=== PATIENT | male | born 1960 | race African-American/Black ===

== ENCOUNTER 2016-11-14 15:52 | Emergency (ER) | payer OTHER, BC ==
[~2016-11-14] VITALS: Ht 185.4 cm; Wt 81.5 kg
[~2016-11-14 15:52] MED LIST: CIPRO500 MG PO; VIAGRA50 MG PO
[2016-11-14 17:23] VITALS: BP 130/72
== END 2016-11-14 17:24 | disposition home or self-care (01) ==
LOC: EME 15:52
DX: T22.111A Burn of first degree of right forearm, initial encounter (principal); X13.1XXA Other contact with steam and other hot vapors, initial encounter; Y92.129 Unspecified place in nursing home as the place of occurrence of the external cause; Y93.89 Activity, other specified; Y99.0 Civilian activity done for income or pay; K21.9 Gastro-esophageal reflux disease without esophagitis; Z87.891 Personal history of nicotine dependence
CPT/HCPCS: 99281; 99284

== ENCOUNTER 2017-05-23 10:10 | Emergency (ER) | payer BC ==
[~2017-05-23] VITALS: Ht 185.4 cm; Wt 80.9 kg
[2017-05-23 11:37] LABS: HEMATOCRIT 46.2 % (38.0-50.0); HEMOGLOBIN 15.5 G/DL (12.5-16.6); MCH 31.1 PG (29.0-34.0); MCHC 33.5 G/DL (30.0-36.0); MCV 92.6 FL (86-99); PLATELET COUNT 171 K/uL (156-360); RBC DIS.WIDTH-CV 11.4 % (11.8-14.6); RBC DIS.WIDTH-SD 38.6 % (39-53); RED BLOOD COUNT 4.99 M/uL (4.00-5.50); WHITE BLOOD COUNT 5.3 K/uL (4.1-10.2)
[2017-05-23 11:45] LABS: CHLORIDE 105 mEq/L (99-109)
[2017-05-23 11:46] LABS: POTASSIUM 3.8 mEq/L (3.7-5.4); SODIUM 136 mEq/L (136-147)
[2017-05-23 11:47] LABS: GLUCOSE 104 mg/dL (70-99)
[2017-05-23 11:51] LABS: CREATININE 1.2 mg/dL (0.6-1.3); GFR ESTIMATE (CALCULATED) > 59 mL/min/ (58.99-99999)
[2017-05-23 11:52] LABS: UREA NITROGEN (BUN) 13 mg/dL (9-23)
[2017-05-23] MEDS ORDERED: HYCODAN SYRUP480 ML PO (12:01)
[2017-05-23] MEDS ORDERED: VENTOLIN HFA18 GM IH (12:01)
[2017-05-23 12:17] VITALS: BP 148/101
== END 2017-05-23 12:19 | disposition home or self-care (01) ==
LOC: EME 10:10
PROVIDERS: Nurse Practitioner Family
DX: J10.1 Influenza due to other identified influenza virus with other respiratory manifestations (principal); K21.9 Gastro-esophageal reflux disease without esophagitis; Z87.891 Personal history of nicotine dependence
CPT/HCPCS: 71046; 80048; 85027; 87502; 94640; 99281; 99284